=== PATIENT | male | born 1935 | race Caucasian/White ===

== ENCOUNTER 2018-03-11 08:09 | Day surgery (SDC) | payer MEDICARE, OTHER ==
[~2018-03-11] VITALS: Ht 170.3 cm; Wt 99.0 kg
[~2018-03-11 08:09] MED LIST: APIDRAVL SC; CEPHALEXIN500 M1 PO; CIPRO 500MG TA500 MG PO; COUMADIN 1010 MG/TAB PO; DECONAMINE SR 81 CER PO; DITROPAN 5MG TAB5 MG PO; ETODOLAC400 MG PO; FERRO-TIME325 MG PO; FERROUS SU325 MG/TAB PO; FLONASE NASAL S16 GM NS; FOLIC ACID PO; GEMCOR600 MG PO; HUMULIN R100 U/ML SQ; KLOR-CON 1010 MEQ PO; LASIX 40MG TABL40 MG PO; LEVEMIR100 U/ML SC; MACROBID 1100 MG/CAP PO; MIRAPEX0.75 MG PO; MULTI VITAMINS1 TAB PO; MVI PO; NORCO 325 MG-7.1 TAB PO; NOVOLIN N100 U/ML SC; NOVOLOGMIX70/30 SC; NOVOLOGMIX70/30 SQ; NYSTATIN POWDER30 GM TOP; PHENERGAN 25 TA25 MG PO; PLENDIL 5MG TAB5 MG PO; PROAIR HFA0.09 MG/AC IH; PROSCAR 5MG5 MG PO; PROSCAR PO; PYRIDIUM 100MG100 MG PO; ROBAXIN 75750 MG/TAB PO; TESSALON P100 MG/CAP PO; THERAGRAN1 TA1 PO; TRAMADOL50 MG PO; ULTRAM 50MG TAB50 MG PO; VITAMIN C BUFF500 MG PO; VITAMIN C500 MG PO; VTAMINC250TA PO; VYTORIN 10 MG-41 TAB PO; ZETIA10 MG PO
[2018-03-11 08:59] LABS: INR 3.5 (0.8-3.0); PROTHROMBIN TIME 39.6 SECONDS (9.7-12.8)
[2018-03-11 09:02] LABS: POTASSIUM 4.1 mmol/L (3.4-5.0)
[2018-03-11] MEDS ORDERED: MYRBETR25MG PO (09:04)
[2018-03-11] MEDS ORDERED: SYMMETREL100 M1 (09:06)
[2018-03-11 09:18] VITALS: BP 149/69; PULSE 72; TEMP 97.6
[2018-03-11 09:37] LABS: THYROID STIMULATING HORMONE 3.92 uIU/mL (0.465-4.680)
== END 2018-03-11 14:00 | disposition home or self-care (01) ==
LOC: COL.CAR 08:09
PROVIDERS: Internal Medicine Cardiovascular Disease
DX: I48.0 Paroxysmal atrial fibrillation (principal); I49.5 Sick sinus syndrome; I45.9 Conduction disorder, unspecified; I35.0 Nonrheumatic aortic (valve) stenosis; I10 Essential (primary) hypertension; G47.33 Obstructive sleep apnea (adult) (pediatric); K21.9 Gastro-esophageal reflux disease without esophagitis; M19.90 Unspecified osteoarthritis, unspecified site; E11.9 Type 2 diabetes mellitus without complications; C14.0 Malignant neoplasm of pharynx, unspecified; Z79.01 Long term (current) use of anticoagulants; Z88.5 Allergy status to narcotic agent; Z87.891 Personal history of nicotine dependence; Z96.653 Presence of artificial knee joint, bilateral; Z86.711 Personal history of pulmonary embolism
CPT/HCPCS: J2704; J7030

== ENCOUNTER 2019-02-03 09:22 | Day surgery (SDC) | payer MEDICARE, OTHER ==
[~2019-02-03] VITALS: Ht 172.7 cm; Wt 102.7 kg
[~2019-02-03 09:22] MED LIST changes: +MYRBETR25MG PO; +SYMMETREL100 M1 PO
[2019-02-03 09:41] VITALS: BP 133/60; PULSE 75; TEMP 97.2
[2019-02-03] MEDS ORDERED: VITAMIN C500 MG PO (09:51)
[2019-02-03 13:06] VITALS: BP 117/57; PULSE 62; TEMP 97.3
--- NOTE | 2019-02-03 13:06 | NUR ---
The patient arrived back to [facility] from the operating room at this time. The patient appears drowsy but arouses easily to his name. The patient has an incision to his left presybeterian that is covered with stout set and ointment and appears without redness or edema. Post operative vital signs were started at this time. Call light is within reach. Will continue to monitor the patient.
[2019-02-03 13:21] VITALS: BP 137/53; PULSE 64
--- NOTE | 2019-02-03 13:21 | NUR ---
The patient appears more arousable and requests some water at this time. The patient had a couple drinks of water and appeared to tolerate it well. The patient's vital signs appear stable. The patient's family was brought back to be at his bedside. Call light remains within reach. Will continue to monitor the patient.
[2019-02-03] MEDS ORDERED: NORCO 325 MG-51 TAB PO (13:30)
[2019-02-03 13:36] VITALS: BP 132/53; PULSE 60
--- NOTE | 2019-02-03 13:36 | NUR ---
The patient appears to be resting quietly with his eyes closed at this time. Respirations even and unlabored. The patient's family remains at his bedside at this time. Will continue to monitor the patient.
[2019-02-03 13:55] VITALS: BP 126/62; PULSE 72
--- NOTE | 2019-02-03 13:55 | NUR ---
The patient appears to be resting comfortably on the cart at this time. The patient instructed the patient and his family that when he is a little more awake he can be discharged home. They verbalized understanding and are going to "work on the patient". Will continue to monitor the patient.
[2019-02-03 14:25] VITALS: BP 130/63; PULSE 69
--- NOTE | 2019-02-03 14:25 | NUR ---
Discharge instructions were reviewed with the patient and his family at this time. They all verbalized understanding and questions were answered at this time. The patient' IV to his right forearm was removed and a pressure dressing was applied to the site. The nurse instructed the patient to get dressed and notify the staff when he is ready to be escorted out.
--- NOTE | 2019-02-03 14:44 | NUR ---
The patient was escorted out via wheelchair to a private vehicle by KYLIE Mckeon. The patient's belongings and discharge paperwork were sent with him. The patient's family is present to drive him home.
== END 2019-02-03 14:44 | disposition home or self-care (01) ==
LOC: SDCO 09:22
DX: R51 Headache (principal); I10 Essential (primary) hypertension; E78.00 Pure hypercholesterolemia, unspecified; E11.9 Type 2 diabetes mellitus without complications; G47.33 Obstructive sleep apnea (adult) (pediatric); G20 Parkinson's disease; R70.0 Elevated erythrocyte sedimentation rate; M19.90 Unspecified osteoarthritis, unspecified site; G25.0 Essential tremor; Z79.51 Long term (current) use of inhaled steroids; Z79.4 Long term (current) use of insulin; Z79.01 Long term (current) use of anticoagulants; Z96.653 Presence of artificial knee joint, bilateral; Z95.0 Presence of cardiac pacemaker; Z88.5 Allergy status to narcotic agent; Z85.818 Personal history of malignant neoplasm of other sites of lip, oral cavity, and pharynx; Z86.711 Personal history of pulmonary embolism; Z92.21 Personal history of antineoplastic chemotherapy
CPT/HCPCS: J0690; J2704; J7030

== ENCOUNTER 2019-08-19 12:16 | Inpatient (IN) | payer MEDICARE, OTHER ==
[~2019-08-19] VITALS: Ht 172.7 cm; Wt 101.7 kg
[~2019-08-19 12:16] MED LIST changes: +NORCO 325 MG-51 TAB PO
[2019-08-19 15:50] VITALS: BP 126/52; PULSE 78; TEMP 97.6
--- NOTE | 2019-08-19 15:54 | NUR ---
Report from [facility] RN. Pt arrived via wheelchair accompanied by staff and significant other. Sig O states she had tried to trim pt's eyebrows with scissors and she accidentally snipped his upper right eyelid twice. Pt was blotting small corner tear with tissue, applied two short pieces of steri strips. Pt was assisted to bed by GIN FEEDER with walker, yellow gown and grippers and pull up in place. INT to L hand. Glasses in place. Pt [place], pleasant, denies pain. Reports his last BM was a week ago (Wednesday) and 5-6 days is normal for him, no pain.
[2019-08-19] MEDS ORDERED: NORMAL SALINE FL5 ML IV (16:33)
[2019-08-19] MEDS ORDERED: PREDNISONE20 MG PO (17:06)
[2019-08-19] MEDS ORDERED: BUMEX 1MG TA1 MG/TA1 PO (17:10)
[2019-08-19] MEDS ORDERED: NITROSTAT0.4 MG/TAB SL (17:10)
[2019-08-19] MEDS ORDERED: IPRATROPIUM BROM3 M1 IH ×2 (17:12→17:13)
[2019-08-19] MEDS ORDERED: ASPIRIN 81M81 MG/TA2 PO (17:13)
--- NOTE | 2019-08-19 18:14 | NUR ---
Stage II to left inner buttock, red, raw, slightly draining/transfers sanguinous fluid, surrounding tissue deep purple, pt states he does not feel it.
--- NOTE | 2019-08-19 19:22 | NUR ---
Report to KYLIE Shaffer
--- NOTE | 2019-08-19 21:10 | NUR ---
NOTIFIED LIDYA MONREAL RE HYPOGLYCEMIA. OK TO HOLD LEVEMIER INSULIN TONIGHT.
[2019-08-20 05:45] VITALS: BP 159/54; PULSE 75; TEMP 97.8
--- NOTE | 2019-08-20 05:59 | NUR ---
ASSITED TO BR. VOIDED WITHOUT DIFFICULTY. DSYPNEIC WITH ACTIVITY. SEEMS TO COMPENSATE WELL. BACK TO BED. O2 3L NC.
[2019-08-20 15:07] VITALS: BP 119/46; PULSE 83; TEMP 98.1
--- NOTE | 2019-08-20 16:40 | NUR ---
Emily RN states pt requested his BG get checked = 38, pt took 120 ml OJ, PB and ras crackers. Cont to be alert. Rechecked per protocol 15 minutes later = 68, given prune juice
--- NOTE | 2019-08-20 21:00 | NUR ---
PT RESTING IN BED. A&O. [place]. FAMILY HERE VISITING. VERY SUPPORTIVE. O2 2L NC. NO RESP DISTRESS. CONTINUES FLUID RESTRICTION. ACCUCHECK 123. TOOK SANDWICH FOR A SNACK. PT REFUSES LEVEMIER. PT STILL HAS EDEMA IN EXTREMITIES.
[2019-08-21 05:05] VITALS: BP 157/73; PULSE 74; TEMP 98
[2019-08-21 06:58] LABS: INR 1.3 (0.8-3.0); PROTHROMBIN TIME 14.7 SECONDS (9.7-12.8)
--- NOTE | 2019-08-21 10:09 | NUR ---
SW met with the patient to complete initial intake, as the patient is new to [facility]. The patient lives in [place] with his daughter (Nga, ph#[phone]) and son (Zhang, ph#[phone]). He reports independence with ADLs prior to hospitalization and has two canes, a FWW, 4WW, and continuous home oxygen. The patient's PCP is Dr. Gopi Lainez and he receives his medications from [facility] in [place]. He reports no difficulties obtaining his meds. The patient's DPOA-HC is in EMR. His DPOA-HC is his daughter (Nga) or friend (Светлана Titus). HARSH to continue to follow to ensure a safe discharge.
--- NOTE | 2019-08-21 11:45 | NUR ---
Patient resting in recliner following his morning therapies. Denies any questions at this time. Currently on 1500 fluid restriction.
--- NOTE | 2019-08-21 13:15 | NUR ---
Patient ate all his lunch and was independent with eating. He was a one person CGA with transferring from chair to walker, walker to toilet and from sitting to standing. He is unsteady at times. Patient continues on oxygen 2 L this morning.
--- NOTE | 2019-08-21 13:51 | NUR ---
Warfarin Follow-up Pharmacy Note Current regimen: Warfarin 3 mg po qHS LABS: INR 1.3 Changes in therapy: Will increase Warfarin to 4 mg po qHS
--- NOTE | 2019-08-21 13:57 | NUR ---
Patient has been having some low blood sugars. Dr. Holley saw patient this morning. See new orders to hold scheduled Novolog TIDF; decreasing Levimir from 30 U BID to 27 U BID and he will continue on HSSI. Will continue to monitor.
--- NOTE | 2019-08-21 15:32 | NUR ---
HARSH met with the patient to discuss setting up a patient/family conference. The patient states that both his children work and that he is unsure of their schedules. He states that he will talk to them both tonight. HARSH to follow up with the patient tomorrow.
[2019-08-21 16:50] VITALS: BP 119/50; PULSE 76; TEMP 97.7
--- NOTE | 2019-08-21 20:00 | NUR ---
PATIENT UP IN CHAIR, FAMILY PRESENT IN ROOM, DURING SHIFT CHANGE REPORT FROM DAY SHIFT NURSE. CHAIR ALARM ON.
--- NOTE | 2019-08-22 01:31 | NUR ---
RESTING IN BED WITH EYES CLOSED, CPAP ON, BED ALARM ON. DOES NOT AWAKEN WHEN ROOM ENTERED.
--- NOTE | 2019-08-22 03:38 | NUR ---
PATIENT RESTING IN BED WITH EYES CLOSED, CPAP OFF, BREATHING NONLABORED AND EVEN. BED ALARM ON.
[2019-08-22 05:06] VITALS: BP 144/53; PULSE 61; TEMP 97.7
--- NOTE | 2019-08-22 05:17 | NUR ---
REPORT DIZZINESS INITIALLY WITH POSITION CHANGES FROM LAYING TO SITTING AND SITTING TO STANDING THAT RESOLVES SHORTLY AFTER ONSET. PATIENT REPORTS HAS HAD DIZZINESS IN THE PAST "SOMETIMES". DENIES ANY CHEST PAIN, SHORTNESS OF BREATH OR PAIN ELSEWHERE OR HYPOGLYCEMIA AT THIS TIME. BED ALARM ON.
[2019-08-22 05:23] VITALS: BP 132/72; PULSE 95; TEMP 97.8
--- NOTE | 2019-08-22 06:13 | NUR ---
FSBS INITIALLY 50, GIVEN 200ML REGULAR SPRITE, RECHECKED FSBS 15MIN AFTER TAKING SODA, 76, GAVE 120 OJ AND 1 PACKAGE PEANUT BUTTER AND 2 PACKAGES CRACKERS.
--- NOTE | 2019-08-22 07:23 | NUR ---
SITTING UP AT SIDE OF BED EATING BREAKFAST DURING SHIFT CHANGE REPORT GIVEN TO DAY SHIFT NURSE. BED ALARM ON.
[2019-08-22 07:42] LABS: INR 1.4 (0.8-3.0); PROTHROMBIN TIME 16.1 SECONDS (9.7-12.8)
--- NOTE | 2019-08-22 11:41 | NUR ---
SW met with the patient to follow up about the family meeting. The patient reports that his daughter has to work the rest of the week, but that SW could contact his daughter to try and arrange a time. SW contacted the patient's daughter, Nga. A family meeting with her on speaker phone was arranged for this , 08/24, at 1200. SW notified the patient.
--- NOTE | 2019-08-22 15:49 | NUR ---
Received new orders from Nurse Practioner at wound care to apply Aquathor to patient's bottom with each toileting. Leave open to air. This will provide moisture protection to the area.
[2019-08-22 15:58] VITALS: BP 122/58; PULSE 88; TEMP 98.2
--- NOTE | 2019-08-22 19:00 | NUR ---
Patient attended all therapies today. He is currently resting in recliner with family by his side, call light in reach and alarm set. Patient was a set up for grooming this shift. He was independent with eating his meals. He had one episode of incontinence on the floor and on clothes this evening when using the toilet. Patient was cleaned up and was able to pull pants up and down and wipe this evening.
--- NOTE | 2019-08-22 19:30 | NUR ---
PATIENT UP IN CHAIR DURING SHIFT CHANGE REPORT FROM DAY SHIFT NURSE. UP TO BATHROOM WITH ASSIST, PASSED BM/URINE. CHAIR ALARM ON.
--- NOTE | 2019-08-22 20:00 | NUR ---
OBSERVED SWELLING TO BLE WITH RIGHT MORE THAN LEFT
--- NOTE | 2019-08-22 20:23 | NUR ---
PATIENT TRANSFERED FROM RECLINER CHAIR TO BED WITH ASSIST PER PATIENT REQUEST. BED ALARM ON.
--- NOTE | 2019-08-23 02:00 | NUR ---
RESTING IN BED WITH EYES CLOSED, DOES NOT AWAKEN WHEN ROOM ENTERED. BREATHING NONLABORED AND EVEN. BED ALARM ON.
[2019-08-23 05:30] VITALS: BP 173/82; PULSE 69; TEMP 97.5
--- NOTE | 2019-08-23 05:55 | NUR ---
GIVEN 240 OJ WITH 4 PACKETS OF SUGAR. BED ALARM ON.
--- NOTE | 2019-08-23 06:15 | NUR ---
GIVEN 1 SNACK CUP OF CHOCOLATE PUDDING AFTER FSBS RECHECKED AT 68.
--- NOTE | 2019-08-23 06:35 | NUR ---
FSBS RECHECKED AT 80, GAVE PATIENT 1 SERVING CUP OF BLUEBERRY YOGURT. CHAIR ALARM ON.
[2019-08-23 07:09] LABS: INR 1.6 (0.8-3.0); PROTHROMBIN TIME 18.9 SECONDS (9.7-12.8)
--- NOTE | 2019-08-23 07:30 | NUR ---
UP IN CHAIR DURING SHIFT CHANGE REPORT GIVEN TO DAY SHIFT NURSE. CHAIR ALARM ON.
--- NOTE | 2019-08-23 12:43 | NUR ---
Bedside report from KYLIE Ott. Pt in chair with O2 at 2L/NC as at home. Had low BG this morning, INR per SSI. Alert, pleasant, good appetite. Aquaphor oint to left inner buttock to healing skin- irritated. Has adventitious heart sound, squeaks. Amb with walker, min assist.
--- NOTE | 2019-08-23 16:04 | NUR ---
HARSH met with the patient and his son, Zhang, to present and review the IPR Team Conference Note. HARSH discussed the patient's progress with therapy and the team's recommendation of outpatient PT with a tentative discharge date set for 08/30. The patient and his son were in agreeance to this plan. The patient and his son chose [facility] in [place] for the outpatient PT. HARSH contacted Ayla at [facility] in [place] and secured the patient an outpatient PT appointment on 09/05, at 1000. HARSH to inform the patient's RN of appointment. HARSH to continue to follow.
[2019-08-23 16:41] VITALS: BP 101/31; PULSE 94; TEMP 97.3
--- NOTE | 2019-08-23 19:27 | NUR ---
Bedside report to KYLIE Shaffer. Pt in chair, sig O visiting, O2@1L/NC, grippers in place, glasses on
[2019-08-23 19:30] VITALS: BP 118/70
--- NOTE | 2019-08-23 21:00 | NUR ---
PT SITTING UP IN RECLINER. HERE. VERY SUPPORTIVE. O2 1L NC. NO RESP DISTRESS AT THIS TIME. SEE MAR FOR TYLENOL GIVEN FOR GENERALIZED DISCOMFORT. ACCUCHECK 252. PT ATE HS SNACK AND APPLESAUCE WITH PILLS. SEE MAR FOR SSI GIVEN. CALL LIGHT IN REACH. CHAIR SET.
--- NOTE | 2019-08-24 00:28 | NUR ---
SPOT CHECKED ACCUCHECK- 77. PT HAD HS SNACK EARLIER- APPLESAUCE. CHEESE AND CRACKERS. ASSISTED PT UP TO RECLINER D/T RESTLESSNESS. O2 PLACED 1L NC. LT THIGH HAS CHRONIC MUCLES SPASMS "JOLTS" WHEN LAYING DOWN. TYLENOL NOT EFFECTIVE. ICE PACK TO AREA, CALL LIGHT IN REACH. CHAIR ALARM SET.
--- NOTE | 2019-08-24 00:41 | NUR ---
pt is having a hard time sleeping and is in chair off the bipap
--- NOTE | 2019-08-24 01:00 | NUR ---
ASSISTED BACK TO BED. NOTIFIED PT AGREEABLE TO BIPAP. CALL [facility] IN [facility]. BED ALARM SET.
--- NOTE | 2019-08-24 01:42 | NUR ---
RT REPORTED PT REFUSED BIPAP. O2 1 LNC STARTED.
[2019-08-24 05:25] VITALS: BP 153/55; PULSE 66; TEMP 97.9
--- NOTE | 2019-08-24 05:33 | NUR ---
ACCUCHECK 62. SANDWICH AND MILK GIVEN.
[2019-08-24 07:25] LABS: PROTHROMBIN TIME 23.7 SECONDS (9.7-12.8)
--- NOTE | 2019-08-24 13:29 | NUR ---
SW attended a family meeting with the patient and his girlfriend, Светлана. SW attempted to contact his daughter, Nga, for the family meeting. The patient's daughter did not answer. IPR Director then began be explaining the purpose of the meeting. PT/OT/ST then discussed the patient's progress with the plan for a discharge next Wednesday, 08/30, with outpatient PT. The patient was in agreeance to this plan. The patient's girlfriend reports that they have been thinking about having the patient come and stay at her home in [place] upon discharge, due to the patient's children working during the day. She states that the patient would have steps to go up to get into her home. The team plans to continue to work with the patient on steps. The team answered answered all questions. SW to continue to follow.
[2019-08-24 18:26] VITALS: BP 130/35; PULSE 72; TEMP 98
--- NOTE | 2019-08-24 20:00 | NUR ---
SHIFT REPORT RECIEVED FROM Kimberly MOON RN. PT SITTING UP IN RECLINER. FAMILY AT BEDSIDE. VERY SUPPORTIVE. O2 1/2L NC. WANTS TYLENOL AT BEDTIME FOR LT THIGH PAIN.
--- NOTE | 2019-08-24 20:01 | NUR ---
Shift summary: Bedside report from KYLIE Shaffer. Pt on O2/NC, c/o pain to left thigh, tylenol given this morning, enc again this evening to prevent pain from setting in, had a rough night according to report. Pt ate well, had visitors. Steris to right upper eyelid intact, dried scab. Pt amb with walker, CGA, in yellow gown, grippers, SCDs to BLE with feet up in recliner, alarm on, call lt in reach. Bedside report to KYLIE Shaffer
--- NOTE | 2019-08-24 21:00 | NUR ---
ACCUCHECK 262. PT AGREED TO LEVEMIER INSULIN. DECLINED NOVOLOG SSI. PT ABLE TO TAKE IN HS SNACK. READY FOR SLEEP. BIPAP ON PER RT. NONEEDS. CALL LIGHT IN REACH. BED ALARM SET.
--- NOTE | 2019-08-25 01:30 | NUR ---
SPOT CHECK ACCUCHECK 199.
--- NOTE | 2019-08-25 03:57 | NUR ---
ASSISTED PT TO BR W/WALKER. VOIDED. BACK TO BED. O2 BACK ON AT 1/2LNC. VSS.
[2019-08-25 04:03] VITALS: BP 166/60; PULSE 81; TEMP 98.2
--- NOTE | 2019-08-25 07:26 | NUR ---
Lying in bed with eyes closed. Opens eyes when name called out. Alert and oriented x4. Denies pain. Oxygen at 0.5L/NC. Lung sounds with faint inspiratory and expiratory wheezes in all lung barba. Right upper eyelid with steri strips in place. Significant amount of dark purple bruising noted to right upper arm. Patient denies needs at this time. Eating breakfast.
[2019-08-25 07:55] LABS: HEMOGLOBIN 10.6 g/dl (13.5-18.0); MEAN CELL VOLUME 89 fl (80.0-100.0); MEAN CORPUSCULAR HEMOGLOBIN 26 pg (27.0-31.0); MEAN CORPUSCULAR HGB CONC 29 g/dl (33.0-37.0); MEAN PLATELET VOLUME 9.9 fl (7.4-10.4); PLATELET COUNT 354 K/mm3 (130-400); RED BLOOD COUNT 4.13 M/mm3 (4.20-5.60); REDCELL DISTRIBUTION WIDTH-CV 17.2 % (11.5-14.5)
[2019-08-25 07:58] LABS: HEMATOCRIT 36.7 % (42.0-52.0)
[2019-08-25 08:06] LABS: CALCIUM 8.8 mg/dL (8.4-10.2); CREATININE, serum 1.17 (0.66-1.25); MAGNESIUM 2.3 mg/dL (1.6-2.3); POTASSIUM 3.6 mmol/L (3.4-5.0)
[2019-08-25 08:13] LABS: INR 2.3 (0.8-3.0); PROTHROMBIN TIME 27.2 SECONDS (9.7-12.8)
[2019-08-25 08:31] LABS: BAND 4 % (0-10); EOSINOPHIL 3 % (0-4); LYMPHOCYTE 17 % (20.0-51.0); METAMYELOCYTE 1 % (0-0); NEUTROPHILS 64 % (42.0-75.2); PLATELET ESTIMATE NORMAL (NORMAL)
--- NOTE | 2019-08-25 13:55 | NUR ---
Admission QIM scores were reviewed by the team. Code of 5 chosen for eating was determined by team discussion to be the most usual performance before interventions for this patient during the assessment period.--Monet Kelly, PD
--- NOTE | 2019-08-25 14:35 | NUR ---
HARSH met with the patient to follow up before the weekend. The patient states that he is doing well. Just watching TV. The patient reports that they are still leaning towards him staying at his girlfriend, Maryams, home in [place] upon discharge. [facility] discussed switching his PT appointment to the [facility] in [place]. The patient reports that is okay to keep his appointment at the [facility] in [place] for now. He states that this could change by the time of his discharge though. SW to continue to follow.
[2019-08-25 15:37] VITALS: BP 133/56; PULSE 78; TEMP 97.6
--- NOTE | 2019-08-25 21:00 | NUR ---
Patients left for the night. Patient up to the bathroom CGA with walker. Gait steady. Voids and sits back up in chair. Takes grahams and cheese for snack and a few nuts. HS meds all reviewed and given.
--- NOTE | 2019-08-25 22:00 | NUR ---
Patient assisted to bed with walker. Rests self back in bed. Denies pain.
--- NOTE | 2019-08-26 02:00 | NUR ---
Patient has been resting quietly in bed. Awake and calls for assist to remove bipap/done. Returns to resting with eyes closed.
[2019-08-26 04:48] VITALS: BP 132/50; PULSE 68; TEMP 98.5
--- NOTE | 2019-08-26 09:02 | NUR ---
PT IS LAYING IN BED. ATE 100% MEAL. NSG ASSESSMENT COMPLETED. PT HAS NO PAIN.
[2019-08-26 16:30] VITALS: BP 114/62; PULSE 73; TEMP 98.6
--- NOTE | 2019-08-26 18:22 | NUR ---
PT HAS BEEN SITTING UP IN HIS RECLINER FOR MOST OF THE DAY. HE EATS WELL AND HAS HAD SEVERAL SNACKS. PT HAS SLEPT OFF AND ON TODAY. HE HAS NOT HAD ANY PAIN MEDS, HAS HAD NO PAIN. CALL LIGHT AND ALARMS ON TODAY
--- NOTE | 2019-08-26 19:00 | NUR ---
Report received from Odalis ESPINAL. Patient sitting up in chair visiting with significant other. Denies pain.
--- NOTE | 2019-08-26 22:00 | NUR ---
Patient up to the bathroom with walker and changes into gown for HS. Rests back in bed. HS meds all reviewed and given. Took snack of piece of pie brought in by significant other.
--- NOTE | 2019-08-27 03:02 | NUR ---
Rests with eyes closed. Respirations with ease. Bipap off.
[2019-08-27 05:01] VITALS: BP 123/50; PULSE 73; TEMP 97.9
[2019-08-27 08:25] LABS: PROTHROMBIN TIME 23.8 SECONDS (9.7-12.8)
--- NOTE | 2019-08-27 08:33 | NUR ---
Sitting up in chair. Denies pain. Steri strips intact to right upper eyelid. Large bruise noted to right upper arm. Bilat lower ext edema 1+. Patient denies needs or concerns at this time.
--- NOTE | 2019-08-27 08:40 | NUR ---
Patient did not want bed bath today. Patient assisted into changing into personal clothes. Patient performed oral hygiene earlier in the morning. Remains sitting up in the chair. Denies further needs at this time.
--- NOTE | 2019-08-27 13:00 | NUR ---
Sitting up in chair. Denies any needs or concerns at this time.
[2019-08-27 15:54] VITALS: BP 115/49; PULSE 70; TEMP 97.8
--- NOTE | 2019-08-27 15:55 | NUR ---
Sitting up in chair with eyes open. Visitors in room with the patient. Patient voices no needs or concerns at this time.
--- NOTE | 2019-08-27 17:21 | NUR ---
Sitting up in chair watching TV and visiting with company in room. Denies pain or any further needs at this time.
--- NOTE | 2019-08-27 19:30 | NUR ---
PATIENT SITTING UP IN CHAIR, FAMILY& VISITORS IN ROOM, DURING SHIFT CHANGE REPORT FROM DAY SHIFT NURSE. CHAIR ALARM ON. NO NEEDS REPORTED AT TIME OF REPORT.
--- NOTE | 2019-08-28 01:26 | NUR ---
PATIENT REPORTS DIZZINESS WHEN TAKEN TO BATHROOM, 120 ML ORANGE JUICE GIVEN PRIOR TO BATHROOM. FSBS CHECKED AFTER BATHROOM, RESULTED 44, ANOTHER 120 ML ORANGE JUICE WITH 2 PACKETS OF SUGAR MIXED IN JUICE GIVEN TO PATIENT.
--- NOTE | 2019-08-28 04:34 | NUR ---
RESTING IN BED, EYES CLOSED, DOES NOT AWAKEN WHEN ROOM ENTERED, BREATHING EVEN/NONLABORED, BED ALARM ON.
[2019-08-28 05:46] VITALS: BP 126/65; PULSE 65; TEMP 97.8
[2019-08-28 06:48] LABS: CALCIUM 8.6 mg/dL (8.4-10.2); CREATININE, serum 1.12 (0.66-1.25); MAGNESIUM 2.1 mg/dL (1.6-2.3); POTASSIUM 3.7 mmol/L (3.4-5.0)
--- NOTE | 2019-08-28 07:25 | NUR ---
PATIENT IN BED DURING SHIFT CHANGE REPORT GIVEN TO DAY SHIFT NURSE. BED ALARM ON.
--- NOTE | 2019-08-28 09:43 | NUR ---
Patient attending therapies this morning. Reported 1/10 pain to right upper extremity, but refused any pain meds this AM. He is independent with eating and grooming, but does take moretime. Denies questions at this time.
--- NOTE | 2019-08-28 11:40 | NUR ---
Discussed low blood sugars from this morning with patient. Will update Dr. Pratt this evening.
--- NOTE | 2019-08-28 14:43 | NUR ---
Furniture Crater met with patient to follow up from the weekend. Patient states he had a good weekend and still does not know if his outpatient PT needs to be set up in [place] or [facility] office. SW to continue to follow. Patient reports he has an appointment also set up at for the . Patient does not have any questions or concerns at this time.
[2019-08-28 18:15] VITALS: BP 117/52; PULSE 78; TEMP 98.6
--- NOTE | 2019-08-28 19:40 | NUR ---
PATIENT UP IN CHAIR DURING SHIFT CHANGE REPORT FROM DAY SHIFT NURSE. PATIENT MOD I IN ROOM. NO NEEDS REPORTED. GIVEN ENSURE 240 ML FOR SNACK.
--- NOTE | 2019-08-28 20:00 | NUR ---
NOE LOWER EXTREMITIES SWELLING RIGHT MORE THAN LEFT.
--- NOTE | 2019-08-28 20:44 | NUR ---
Patient had a low blood sugar this afternoon again.
--- NOTE | 2019-08-28 20:54 | NUR ---
Received new orders from Dr. Pratt to change Levimier form 20 units to 15 units BID. Patient had a decrease in his dosage of prednisone which may a factor in his current lower blood sugars. Will continue to monitor.
--- NOTE | 2019-08-28 21:50 | NUR ---
PATIENT GIVEN PEANUT BUTTER WITH 2 PACKETS OF CRACKERS ADDITIONAL FOR HS SNACK. PATIENT AGREEABLE TO HAVE BED ALARM ON FOR SAFETY AT NIGHT DUE TO LAST NIGHT LOW FSBS READINGS.
--- NOTE | 2019-08-29 02:30 | NUR ---
PATIENT RESTING IN BED, BED ALARM ON AT THIS TIME. OXYGEN CONTINUES PER NC AT 1-2 LPM. PATIENT DOES NOT AWAKEN WHEN ROOM ENTERED.
--- NOTE | 2019-08-29 03:26 | NUR ---
TREATMENT NOT GIVEN - PATIENT SLEEPING
[2019-08-29 05:09] VITALS: BP 126/67; PULSE 97; TEMP 97.4
--- NOTE | 2019-08-29 05:24 | NUR ---
FSBS 66, GIVEN 1 SNACK CUP SHREYA PUDDING.
[2019-08-29 06:01] VITALS: BP 137/52; PULSE 63; TEMP 97.5
--- NOTE | 2019-08-29 06:52 | NUR ---
PATIENET REFUSING BIPAP, REMOVING BIPAP FROM ROOM.
[2019-08-29 09:28] LABS: INR 1.9 (0.8-3.0); PROTHROMBIN TIME 22.5 SECONDS (9.7-12.8)
--- NOTE | 2019-08-29 12:09 | NUR ---
Patient resting in recliner, call light in reach and is independent in his room. Patient is not on oxygen during the day now, but does use it at night sometimes. He attended all therapies this morning. Patient ate some snacks prior to lunch due to feeling light headed from lower blood sugar. Will continue to monitor.
[2019-08-29 13:35] VITALS: BP 116/43; PULSE 73; TEMP 98.1
--- NOTE | 2019-08-29 14:01 | NUR ---
At approximately 1:35 pm patient reported to staff that he felt like somebody stepped on his chest. Then bilateral elbows down to hands started to go to sleep and were numb and tingling. This nurse arrived and took vitals and they were stable. Charge nurse, Kisha was called and she and KYLIE Vitale ordered EKG and called Dr. Holley to evaluate patient. Dr. Holley reviewed EKG results and did his assessment and no changes to patients care were made at this time. Patient reported that he know longer felt the heaviness to his chest, he never had any nausea, but did feel weak and unsteady when transferring from his recliner to bed during this episode. Patient is now resting in bed still has numbness to bilateral hands, call light in reach and bed alarm set. Patient is currently on oxygen 1 L at this time. Will continue to monitor.
--- NOTE | 2019-08-29 15:21 | NUR ---
Artist Woodblock met with patient who is scheduled for discharge tomorrow 08/30/2019. SW presented and explained IM form to patient who verbalized understanding and provided signature. Original was placed on chart and copy was provided to patient. HARSH followed up on location for patient's outpatient PT. Patient states he would like the appointment changed from the [facility] location to [place] for the time being. [facility] contacted [facility] in [place] and rescheduled his appointment for 09/01/2019 @1045 at the [place] office. Appointment was provided to [facility]. HARSH will fax orders to [phone] tomorrow upon discharge.
[2019-08-29 16:13] VITALS: BP 136/41; PULSE 74; TEMP 97.8
--- NOTE | 2019-08-29 18:12 | NUR ---
Patient has reported that the numbness to his bilateral hands has gone away now. Patient regained his strength and this nurse observed patient independently walk from recliner to bathroom and back with no difficulties. He ate all his dinner this evening. Will continue to monitor.
--- NOTE | 2019-08-29 20:00 | NUR ---
Patient sitting up in recliner and significant other in visiting. HS meds along with insulin and HS snack reviewed and given. Patient is mod I in room with walker. Denies pain.
[2019-08-29 22:31] VITALS: BP 124/48; PULSE 71; TEMP 98
[2019-08-30 03:26] VITALS: BP 135/51; PULSE 71; TEMP 97.6
--- NOTE | 2019-08-30 05:52 | NUR ---
Patient accu check 71 and 4oz orange juice given.
[2019-08-30 07:41] LABS: INR 1.8 (0.8-3.0); PROTHROMBIN TIME 20.9 SECONDS (9.7-12.8)
[2019-08-30 07:42] VITALS: BP 120/49; PULSE 89; TEMP 97.6
[2019-08-30] MEDS ORDERED: PREDNISONE20 MG PO (08:45)
[2019-08-30] MEDS ORDERED: PROAIR HFA0.09 MG/AC IH (08:47)
[2019-08-30] MEDS ORDERED: K-TAB20 PO (08:47)
--- NOTE | 2019-08-30 10:57 | NUR ---
[employer] Sales Consultant faxed order for outpatient PT to [facility]. Patient to discharge today. No additional needs at this time.
[2019-08-30 12:11] VITALS: BP 123/50; PULSE 87; TEMP 97.8
--- NOTE | 2019-08-30 20:10 | NUR ---
Report from KYLIE Oliveros. Pt lili mod I in rm with walker. On room air. Removed INT and tele prior to discharge. Printed pt health summary, discharge summary, and discharge home med list and reviewed with pt (and sig O Ruby). Called in other new meds to pharm of choice, pharm confirms receipt of e-scripts. Belongings gathered by pt, Sig O, and staff including upper and lower dentures, bilateral hearing aides, glasses, wallet, clothes, portable oxygen unit. Pt and Sig O denied any questions. Stressed importance of diet, fluid restriction, daily weights, and pressure ulcer cares. Pt verbalized understanding. Pt transported via wheelchair by JORGITO Martinez for ride home. Faxed DC Summary to PCP and recieved "OK" fax receipt.
== END 2019-08-30 16:35 | disposition home or self-care (01) | DRG 947 ==
PROVIDERS: ADMIT Internal Medicine
DX: R53.81 Other malaise (principal); J96.22 Acute and chronic respiratory failure with hypercapnia; J96.21 Acute and chronic respiratory failure with hypoxia; I50.32 Chronic diastolic (congestive) heart failure; N17.9 Acute kidney failure, unspecified; G72.9 Myopathy, unspecified; I11.0 Hypertensive heart disease with heart failure; E78.5 Hyperlipidemia, unspecified; I48.91 Unspecified atrial fibrillation; I35.0 Nonrheumatic aortic (valve) stenosis; N40.0 Benign prostatic hyperplasia without lower urinary tract symptoms; I27.20 Pulmonary hypertension, unspecified; J44.9 Chronic obstructive pulmonary disease, unspecified; G47.33 Obstructive sleep apnea (adult) (pediatric); G20 Parkinson's disease; E11.9 Type 2 diabetes mellitus without complications; Z79.01 Long term (current) use of anticoagulants; Z79.4 Long term (current) use of insulin; Z86.711 Personal history of pulmonary embolism; Z95.0 Presence of cardiac pacemaker; Z85.818 Personal history of malignant neoplasm of other sites of lip, oral cavity, and pharynx; Z92.21 Personal history of antineoplastic chemotherapy; Z92.3 Personal history of irradiation; Z87.891 Personal history of nicotine dependence; Z88.6 Allergy status to analgesic agent
CPT/HCPCS: 99222-AI; 99232-AI; 99239; J1815; J7512

== ENCOUNTER 2019-09-09 07:35 | Emergency (ER) | payer MEDICARE, OTHER ==
[~2019-09-09] VITALS: Ht 167.6 cm; Wt 104.5 kg
[~2019-09-09 07:35] MED LIST changes: +ASPIRIN 81M81 MG/TA2 PO; +BUMEX 1MG TA1 MG/TA1 PO; +IPRATROPIUM BROM3 M1 IH; +K-TAB20 PO; +NITROSTAT0.4 MG/TAB SL; +NORMAL SALINE FL5 ML IV; +PREDNISONE20 MG PO
[2019-09-09 07:54] VITALS: TEMP 97.4
[2019-09-09 08:10] LABS: BASO % 0.3 % (0.0-2.0); EOS # 0.2 (0.0-0.7); EOS % 2.8 % (0-4.0); GRAN # 6.3 (1.4-6.5); GRAN % 84.3 % (42.2-75.2); LYMPH # 0.4 (1.2-3.4); LYMPH % 4.7 % (20.0-51.0); MEAN CELL VOLUME 89 fl (80.0-100.0); MEAN CORPUSCULAR HGB CONC 28 g/dl (33.0-37.0); MEAN PLATELET VOLUME 9.3 fl (7.4-10.4); MONO # 0.6 (0.1-0.6); MONO % 7.5 % (1.7-9.3); PLATELET COUNT 263 K/mm3 (130-400); RED BLOOD COUNT 3.71 M/mm3 (4.20-5.60)
[2019-09-09 08:13] LABS: HEMATOCRIT 33.1 % (42.0-52.0); HEMOGLOBIN 9.4 g/dl (13.5-18.0); MEAN CORPUSCULAR HEMOGLOBIN 25 pg (27.0-31.0)
[2019-09-09 08:18] LABS: ALBUMIN 3.4 gm/dL (3.5-5.0); BILIRUBIN,TOTAL 0.3 mg/dL (0.0-1.0); CALCIUM 8.6 mg/dL (8.4-10.2); CREATININE, serum 1.24 (0.66-1.25); MAGNESIUM 2.3 mg/dL (1.6-2.3); TOTAL PROTEIN 6.5 gm/dL (6.4-8.2)
[2019-09-09 08:30] LABS: INR 1.8 (0.8-3.0); PROTHROMBIN TIME 21.9 SECONDS (9.7-12.8)
[2019-09-09 08:33] LABS: PARTIAL THROMBOPLASTIN TIME 36.7 SECONDS (26.0-37.0)
[2019-09-09 08:36] LABS: TROPONIN-I 0.046 ng/mL (0.000-0.035)
[2019-09-09 12:04] VITALS: BP 124/61; PULSE 78
== END 2019-09-09 12:10 | disposition short-term general hospital (02) ==
LOC: COL.ER 07:35
PROVIDERS: Emergency Medicine
DX: I50.9 Heart failure, unspecified (principal); R04.2 Hemoptysis; I10 Essential (primary) hypertension; E11.9 Type 2 diabetes mellitus without complications; I25.10 Atherosclerotic heart disease of native coronary artery without angina pectoris; I48.91 Unspecified atrial fibrillation; Z79.01 Long term (current) use of anticoagulants; Z79.4 Long term (current) use of insulin; Z79.82 Long term (current) use of aspirin

== ENCOUNTER → 2019-10-11 | Outpatient (CLI) | payer MEDICARE, OTHER ==
[~2019-10-11] MED LIST changes: +ALDACTONE 25MG25 M1 PO; +APIDRAVL SQ; -COUMADIN 1010 MG/TAB PO; +COUMADIN 2MG2 MG/TAB PO; +COUMADIN 3MG3 MG/TAB PO; +FLOMAX 0.40.4 MG/CAP PO; +LEVEMIR FLEX100 U/ML SQ; +SENOKOT S 50 MG1 TAB PO
== END ==
LOC: COL.RAD 09:09
DX: J90 Pleural effusion, not elsewhere classified (principal); J18.1 Lobar pneumonia, unspecified organism; Z97.8 Presence of other specified devices

== ENCOUNTER 2019-10-12 11:17 | Inpatient (IN) | payer MEDICARE, OTHER ==
[~2019-10-12] VITALS: Ht 167.6 cm; Wt 93.3 kg
[~2019-10-12 11:17] MED LIST changes: -ALDACTONE 25MG25 M1 PO; -APIDRAVL SQ; -COUMADIN 2MG2 MG/TAB PO; -FLOMAX 0.40.4 MG/CAP PO; -LEVEMIR FLEX100 U/ML SQ; -SENOKOT S 50 MG1 TAB PO
[2019-10-12 15:03] VITALS: BP 138/44; PULSE 79; TEMP 98
[2019-10-12] MEDS ORDERED: LEVEMIR FLEX100 U/ML SQ (16:44)
[2019-10-12] MEDS ORDERED: PROSCAR 5MG5 MG PO (16:45)
[2019-10-12] MEDS ORDERED: ALDACTONE 25MG25 M1 PO (16:46)
[2019-10-12] MEDS ORDERED: FLOMAX 0.40.4 MG/CAP PO (16:47)
[2019-10-12] MEDS ORDERED: SENOKOT S 50 MG1 TAB PO (16:48)
[2019-10-12] MEDS ORDERED: APIDRAVL SQ (16:53)
[2019-10-12 17:07] LABS: INR 1.4 (0.8-3.0)
--- NOTE | 2019-10-12 17:38 | NUR ---
Patient arrived to facility via private vehicle at approximately 1500. Patient is alert and oriented, answers questions appropriately. Small pressure ulcers on the left and right of gluteal cleft just below the coccyx; patient states it is from his stay at for his aortic valve replacement. Skin is open, but is clean, pink, and moist. Dressing applied. Up to date medication list requested and recieved from Dr. Cline's office, med rec completed. Patient denies needs at this time, call light within reach.
--- NOTE | 2019-10-12 17:45 | NUR ---
Warfarin Initial Dosing Pharmacy Note Ordering Provider: Sid Pratt MD Indication: Atrial fibrillation LABS: INR = 1.4 Recommendation: Initiate at 5 mg warfarin daily. Monitor INR daily Home Regimen: According to patient medication claim history, thi spatient averages 6 mg of warfain daily.
[2019-10-12 18:01] VITALS: BP 138/74; PULSE 79; TEMP 98
--- NOTE | 2019-10-12 18:50 | NUR ---
PATIENT RESTING IN BED DURING CHANGE OF SHIFT REPORT FROM DAY SHIFT NURSEISA. BED ALARM TURNED ON.
--- NOTE | 2019-10-12 21:10 | NUR ---
CONTACTED AND CONFIRMED WITH HOSPITALIST EDI ANALYST, DR KEARNS, PATIENT'S HOME [facility] SSI REGIMEN FOR BLOOD SUGAR RESULTS. ORDERS GIVEN TO CONTINUE SSI PATIENT TAKES AT HOME, ASPART IS OKAY TO GIVE ACCORDING TO FSBS READINGS. BED ALARM ON.
--- NOTE | 2019-10-12 23:30 | NUR ---
UNABLE TO SCAN ASPART INSULIN, 8 U PER DO SSI DUE TO COMPUTER PROBLEMS. MED GIVEN PER DO FOR FSBS RESULT OF 351.
[2019-10-13 05:02] VITALS: BP 133/48; PULSE 76; TEMP 98.1
[2019-10-13 06:51] LABS: BASO # 0.1 (0.0-0.2); BASO % 0.4 % (0.0-2.0); EOS # 0.4 (0.0-0.7); EOS % 3.1 % (0-4.0); GRAN # 9.9 (1.4-6.5); INR 1.3 (0.8-3.0); LYMPH # 1.1 (1.2-3.4); LYMPH % 8.5 % (20.0-51.0); MEAN CELL VOLUME 86 fl (80.0-100.0); MEAN CORPUSCULAR HGB CONC 28 g/dl (33.0-37.0); MEAN PLATELET VOLUME 9.2 fl (7.4-10.4); MONO # 1.1 (0.1-0.6); MONO % 8.4 % (1.7-9.3); PLATELET COUNT 366 K/mm3 (130-400); PROTHROMBIN TIME 15.6 SECONDS (9.7-12.8); RED BLOOD COUNT 3.55 M/mm3 (4.20-5.60); REDCELL DISTRIBUTION WIDTH-CV 18.3 % (11.5-14.5)
[2019-10-13 06:52] LABS: HEMATOCRIT 30.6 % (42.0-52.0); HEMOGLOBIN 8.7 g/dl (13.5-18.0); MEAN CORPUSCULAR HEMOGLOBIN 25 pg (27.0-31.0)
[2019-10-13 07:02] LABS: CALCIUM 9.1 mg/dL (8.4-10.2); CREATININE, serum 1.2 (0.66-1.25); MAGNESIUM 1.9 mg/dL (1.6-2.3); POTASSIUM 3.9 mmol/L (3.4-5.0)
--- NOTE | 2019-10-13 08:09 | NUR ---
Patient ate all his breakfast this morning. Reports pain to his left great toe due to possible ingrown toe nail. Refused any tylenol. Takes pills whole with water. Independent with eating. Currently putting in his own hearing aids.
--- NOTE | 2019-10-13 10:20 | NUR ---
HARSH contacted the patient's room phone to complete initial intake, as the patient is new to [facility]. The patient lives in [place] with his daughter (Nga, ph#[phone]), son (Zhang, ph#[phone]), and grandson (Hipolito). The patient reports that he was independent with ADLs prior to hospitalization and has a cane and two walkers. He was also receiving home health services from [facility]. HARSH contacted and confirmed services from Erica at [facility]. Erica reports that the patient was receiving senior living/OT/PT. HARSH faxed updates to [facility]. The patient's PCP is Dr. Gopi Lainez and he receives his medications at [facility] in [place] and through [facility]. He reports no difficulties obtaining his meds. The patient's DPOA-HC is in EMR. His DPOA-HC is his daughter (Nga) and his girlfriend (Светлана Cardona, ph#[phone]). HARSH attempted to contact the patient's daughter to update and confirm the above information. HARSH left her a voicemail and will continue to follow.
--- NOTE | 2019-10-13 11:10 | NUR ---
Received call from HARSH Carlton reporting that a family member was concerned about patient's warfrin dose being so high. Pharmacy was called and they are managing patient's PT/INR and pharmacy reported that patient's INR was sub theraputic at this time so will be given 5 mg warfrin this evening. This will be communicated to family member. This nurse left a message with family member Nga [phone]. Awaiting a return call.
--- NOTE | 2019-10-13 15:42 | NUR ---
Received return call from Nga, daughter and she was updated on patient's warfrin dosing. She voiced understanding and denied any further questions.
--- NOTE | 2019-10-13 15:42 | NUR ---
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 Applied Aquacel AG to both areas and secured with mepilex bandage. Patient has some reddened excoriated skin to groin area and applied barrier ointment to that area. Patient reports having more pain on the left coccyx. This nurse applied a cushion to patient's recliner and an egg crate cushion to his bed. Will continue to monitor.
[2019-10-13 18:16] VITALS: BP 168/49; PULSE 73; TEMP 98.9
--- NOTE | 2019-10-13 20:57 | NUR ---
Call placed to Nga, patient's daughter to clarify two home meds. Patient is taking 20 MEQ of Potassium each day. He was taken off the Nitro per Dr. Cline. EMR was updated.
--- NOTE | 2019-10-13 21:00 | NUR ---
PT RESTING IN BED. TALKATIVE. GOOD HISTORIAN. NO RESP DISTRESS. HAD MODERATELY LG THICK TANNISH SPUTUM PRODUCTION WITH COUGH. PT REPORT CLEAR SINUS DRTAINGE. DENIES PAIN. ABLE TO AMB TO BR WITH LITTLE ASSIST WITH WALKER. ABLE TO LIFT LEGS BACK INTO BED PER SELF. CALL LIGHT IN REACH. BED ALARM SET.
[2019-10-14 04:52] VITALS: BP 131/45; PULSE 82; TEMP 99.7
--- NOTE | 2019-10-14 06:33 | NUR ---
PT UP TO BR A FEW TIMES. NO INCONTINCE. UNEVENTFUL HS.
[2019-10-14 07:28] LABS: INR 1.4 (0.8-3.0)
--- NOTE | 2019-10-14 07:59 | NUR ---
Report from KYLIE Shaffer. Pt called to toilet, incont of urine in pull up, denies numbness/dizziness. Took pills whole with water, glasses, HAs, yellow grippers in place. To chair with seat cushion, call lt in reach, alarm on. Cell phone in reach, tray in reach. Declined pain med. Amb with CGA with gb and FW.
--- NOTE | 2019-10-14 11:01 | NUR ---
Pt returned from therapy, to recliner, soaking left foot
[2019-10-14 16:52] VITALS: BP 136/36; PULSE 72; TEMP 97.9
--- NOTE | 2019-10-14 17:01 | NUR ---
Bedside report to KYLIE Aguila. Pt denied any needs, bed alarm on, call lt in reach.
--- NOTE | 2019-10-14 21:30 | NUR ---
PT REPORTS HE WAS RECOMMENDED TO USE OXYGEN AT NIGHT, PLACED ON O2 AT 2L/NC FOR PT COMFORT. SAO2 WAS 90% ON ROOM AIR. IS ALERT AND ORIENTED X4. WEARS DEPENDS FOR OCCASIONAL INCONTINENCE. COUGHING UP MONREAL SPUTUM. TAKES HS MEDS AT THIS TIME.
[2019-10-15 06:00] VITALS: BP 124/49; PULSE 74; TEMP 98
--- NOTE | 2019-10-15 06:00 | NUR ---
Pt has been up several times this shift to void. Denies pain. Has worn oxygen at 2L/NC this shift.
[2019-10-15 06:50] LABS: INR 1.5 (0.8-3.0); PROTHROMBIN TIME 17.5 SECONDS (9.7-12.8)
--- NOTE | 2019-10-15 08:00 | NUR ---
PATIENT IS SITTING UP AT THE EDGE OF THE BED WITH HIS BREAKFAST TRAY THIS MORNING. PATIENT IS A&OX4. VSS. UPPER LUNG LOBES CLEAR UPON AUSCULTATION. COARSE CRACKLES AUSCULTATED OVER LUNG BASES. PATIENT STATES THAT HE HAS A PRODUCTIVE COUGH WITH MONREAL AND SOMETIMES GREEN SPUTUM. UNOBSERVED BY THIS NURSE. RIGHT-SIDE ABDOMEN SCAB CD&I, NON-DRAINING AND MICHAEL. BOWEL SOUNDS ACTIVE ALL FOUR QUADRANTS. PATIENT TOLERATING DIET WITHOUT ANY COMPLAINTS OF N/V. GENERALIZED WEAKNESS NOTED. POSITIVE PEDAL PULSES EQUAL BILATERALLY. NON-PITTING EDEMA TO FEET BILATERALLY. CALL LIGHT WITHIN REACH. PATIENT DENIES PAIN THIS MORNING.
--- NOTE | 2019-10-15 12:16 | NUR ---
PATIENTS FEET SOAKED IN WARM, SOAPY WATER PER ORDERS. GAUZE AND BANDAID APPLIED TO LEFT GREAT TOE. NO NEEDS AT THIS TIME.
[2019-10-15 17:42] VITALS: BP 152/49; PULSE 76; TEMP 98.1
--- NOTE | 2019-10-15 19:24 | NUR ---
REPORT GIVEN TO KYLIE ROBINS.
--- NOTE | 2019-10-15 19:45 | NUR ---
PT RESTING IN BED. C/O DYSPNEA, PERSISTENT HACKY COUGH, DIAPHRAMATIC DISCOMFORT. BILAT RHONCHI W/ MILD EXP WHEEZE NOTED PRIOR TO COUGH WITH MOD AMT OF THICK MONREAL SPUTUM PRODUCTION. PT UP TO BR WITH WALKER. NEEDED ASSIST TO SITTING POSITION. FATIGUED. HAD URINARY INCONT. NEEDED ASSIST WITH LOW HALF CLOTHING CHANGE. BACK TO BED. WILL NOTIFY A KELI ASSISTANT DIRECTOR OF NURSING OF PT'S STATUS.
--- NOTE | 2019-10-15 20:05 | NUR ---
NOTIFIED SHEYLA MONREAL OF PT'S COMPLAINTS DYSPNEA, COUGH, THICK MONREAL SPUTUM. SEE NEW ORDERS.
--- NOTE | 2019-10-15 20:24 | NUR ---
LAB HERE. HAVING DIFFICULTY WITH OBTAINING SPECIMEN.
[2019-10-15 20:37] LABS: BASO # 0.1 (0.0-0.2); BASO % 0.5 % (0.0-2.0); EOS # 0.3 (0.0-0.7); EOS % 2.6 % (0-4.0); GRAN # 8.6 (1.4-6.5); GRAN % 79.8 % (42.2-75.2); LYMPH # 0.9 (1.2-3.4); LYMPH % 7.9 % (20.0-51.0); MEAN CELL VOLUME 84 fl (80.0-100.0); MEAN CORPUSCULAR HGB CONC 29 g/dl (33.0-37.0); MEAN PLATELET VOLUME 9.5 fl (7.4-10.4); MONO # 0.9 (0.1-0.6); MONO % 8.5 % (1.7-9.3); PLATELET COUNT 400 K/mm3 (130-400); RED BLOOD COUNT 3.36 M/mm3 (4.20-5.60); REDCELL DISTRIBUTION WIDTH-CV 17.9 % (11.5-14.5)
[2019-10-15 20:38] LABS: HEMATOCRIT 28.1 % (42.0-52.0); HEMOGLOBIN 8.2 g/dl (13.5-18.0); MEAN CORPUSCULAR HEMOGLOBIN 24 pg (27.0-31.0)
[2019-10-15 20:44] LABS: ALBUMIN 3.1 gm/dL (3.5-5.0); BILIRUBIN,TOTAL 0.2 mg/dL (0.0-1.0); CALCIUM 8.8 mg/dL (8.4-10.2); CREATININE, serum 1.53 (0.66-1.25); POTASSIUM 4.5 mmol/L (3.4-5.0); TOTAL PROTEIN 6.4 gm/dL (6.4-8.2)
--- NOTE | 2019-10-15 21:20 | NUR ---
STOOL SAMPLE OBTAINED. GREEN IN COLOR. NO BLOOD OBSERVED.
--- NOTE | 2019-10-15 21:55 | NUR ---
RADIOLOGY HERE FOR POTABLE XRAY
[2019-10-16 01:08] VITALS: BP 125/45; PULSE 68; TEMP 97.4
--- NOTE | 2019-10-16 01:20 | NUR ---
VANCOMYCIN STARTED POST BLOOD CULTURES OBTAINED.
--- NOTE | 2019-10-16 02:30 | NUR ---
SEE MAR FOR DIAPHRAM BILAT DISCOMFORT INTERMITTENTLY.
--- NOTE | 2019-10-16 03:46 | NUR ---
PT RESTING NOW, NO DISTRESS AT THIS TIME. O22L NC.
[2019-10-16 05:32] VITALS: BP 115/45; PULSE 67; TEMP 98.2
--- NOTE | 2019-10-16 06:35 | NUR ---
Vancomycin Initial Dosing Pharmacy Note Ordering provider: Sid Pratt MD Indication/duration: Pneumonia, estimated 7 day LABS: Crea=1.53, est crcl of 35 ml/min Recommendation: After 1.5 g IV load, start 1.25 g IV q18h (12 hrs after first dose). Will follow daily labs, trough scheduled for 10/18/19 at 0030 Loading dose: 1.5 grams Maintenance dose: 1.25 grams every 18 hours Trough goal: 15-20 ug/mL
[2019-10-16 07:21] LABS: BASO % 0.5 % (0.0-2.0); EOS # 0.4 (0.0-0.7); EOS % 4.8 % (0-4.0); GRAN # 6.2 (1.4-6.5); GRAN % 74.4 % (42.2-75.2); LYMPH # 0.8 (1.2-3.4); MEAN CELL VOLUME 84 fl (80.0-100.0); MEAN CORPUSCULAR HGB CONC 29 g/dl (33.0-37.0); MEAN PLATELET VOLUME 9.1 fl (7.4-10.4); MONO # 0.8 (0.1-0.6); MONO % 9.3 % (1.7-9.3); PLATELET COUNT 400 K/mm3 (130-400); RED BLOOD COUNT 3.38 M/mm3 (4.20-5.60); REDCELL DISTRIBUTION WIDTH-CV 17.7 % (11.5-14.5)
[2019-10-16 07:26] LABS: HEMATOCRIT 28.5 % (42.0-52.0); HEMOGLOBIN 8.2 g/dl (13.5-18.0); INR 1.8 (0.8-3.0); MEAN CORPUSCULAR HEMOGLOBIN 24 pg (27.0-31.0); PROTHROMBIN TIME 21.7 SECONDS (9.7-12.8)
[2019-10-16 07:39] LABS: CALCIUM 8.8 mg/dL (8.4-10.2); CREATININE, serum 1.26 (0.66-1.25); POTASSIUM 4.1 mmol/L (3.4-5.0)
[2019-10-16 08:00] VITALS: BP 104/44; PULSE 69
--- NOTE | 2019-10-16 08:00 | NUR ---
PT IS A&O*3. PT DENIES PAIN BUT C/O LIGHTHEADED. VSS. ENCOURAGED PT TO LIE DONW ON BED AFTER TAKING MORNING MEDS. PT ADMITED ON 10/11 SINCE WEAKNESS. PT HAS DIMINISHED LUNG SOUNDS. NO ABNORMAL FINDINGS ON HEAD TO TOE ASSESSMENT. PT IS CONSUMING ADEQUATE INTAKE OF BREAKFAST. PT IS USING URINAL. PT HAS IV ON RIGHT AC. PT IS WEARING GLASSES. CALL LIGHT WITHIN REACH.
--- NOTE | 2019-10-16 08:00 | NUR ---
PT ALREADY GONE TO THERAPY
--- NOTE | 2019-10-16 08:00 | NUR ---
PATIENT HAS RLL INFILTRATES, STARTED ON IV VANCO & ZOSYN. IV FLUIDS INFUSING AT 75CC/HR VIA PUMP INTO RIGHT FA IV. PATIENT IS PALE, WEAK AND C/O DIZZINESS. CHECKED VITALS, B/P 104/44 DOWN FROM 115/45. HBG 8.2. PATIENT ON 02 @ 2L PER NC WITH SATS AT 97-98%. WILL MONITOR.
--- NOTE | 2019-10-16 10:00 | NUR ---
CALLED PULM CONSULT
[2019-10-16 12:00] VITALS: BP 149/53; PULSE 77; TEMP 97.7
--- NOTE | 2019-10-16 14:06 | NUR ---
HARSH met with the patient to follow up after the weekend. The patient reports that this weekend was rough. He states that therapy was hard on Wednesday and Wednesday and then he was sore on Wednesday. He states that he is just taking it day by day. SW to continue to follow.
[2019-10-16 17:34] VITALS: BP 138/44; PULSE 77; TEMP 97.9
[2019-10-16 20:00] VITALS: BP 130/45; PULSE 71; TEMP 98.1
--- NOTE | 2019-10-16 20:00 | NUR ---
Received report from KYLIE Lenz. Pt sitting up in bed watching television. Pt has his call light within reach and his bed is in lowest postion.
--- NOTE | 2019-10-16 21:00 | NUR ---
When pt was recommended to allow me to help him soak his left great toe in warm water for 10 minutes, pt stated that he did want to tonight, that he would just wait until tomorrow.
[2019-10-17] VITALS: BP 130/53; PULSE 72; TEMP 98.4
--- NOTE | 2019-10-17 01:59 | NUR ---
Pt has been resting well during the night. Pt has not had any complaints of pain. Pt did wake up when IV pump was beeping for the antiobiotic finishing. Pt has had 900cc of urine out so far. Pt is currently sitting up on the side of his bed, stated he didn't need anything he just wanted to sit up for a while. During the night pt has been rotating from side to side. I did encourage pt to change position as much as he tolerates it to take pressure off of his bottom. Pt has his call light within reach and his bed is in lowest position
--- NOTE | 2019-10-17 03:06 | NUR ---
Pt currently sleeping in bed on his side. Pt has his call light within reach and his bed is in lowest position.
[2019-10-17 04:28] VITALS: BP 139/46; PULSE 75; TEMP 98
--- NOTE | 2019-10-17 07:34 | NUR ---
Reported off to KYLIE Virgen. Pt is sitting in his chair eating breakfast. Call light is within reach and chair alarm on.
[2019-10-17 08:00] VITALS: BP 119/46; PULSE 75; TEMP 98
[2019-10-17 08:09] LABS: INR 2.3 (0.8-3.0); PROTHROMBIN TIME 27.3 SECONDS (9.7-12.8)
--- NOTE | 2019-10-17 11:08 | NUR ---
Patient attended therapies this morning. He just returned from PT and is resting in recliner at this time. He continues on IV antibiotics.
--- NOTE | 2019-10-17 11:38 | NUR ---
PT reported that therapy changed out patient's wheelchair so that he could have a wheelchair that allows for oxygen to be on it. Weight of this wheelchair today with oxygen was 25.3 kg.
--- NOTE | 2019-10-17 14:43 | NUR ---
Patient resting in bed at this time, call light in reach and bed alarm set. Patient denies pain this afternoon. He attended all therapies today and just had his breathing treatment.
--- NOTE | 2019-10-17 16:05 | NUR ---
Patient resting in bed used call light and bed alarm is set.
[2019-10-17 16:53] VITALS: BP 114/42; PULSE 82; TEMP 97.9
--- NOTE | 2019-10-17 16:55 | NUR ---
HARSH attempted to contact the patient's daughter, Nga, to discuss setting up a patient/family conference call for this or Wednesday at 1300. HARSH left her a voicmail. HARSH will attempt to call her tomorrow.
--- NOTE | 2019-10-17 19:30 | NUR ---
PATIENT RESTING IN BED DURING CHANGE OF SHIFT REPORT FROM DAY SHIFT NURSESILVANO. BED ALARM ON.
--- NOTE | 2019-10-17 19:56 | NUR ---
Patient resting in bed, call light in reach and bed alarm set. Patient was able to collect his sputum sample this afternoon and awaiting results at this time. Reported off to night nurse.
--- NOTE | 2019-10-17 22:00 | NUR ---
IV SITE TO R FOREARM LEAKING WITH IV ZOSYN INFUSING, DISCONTINUED IV SITE, SEE CHART FOR NEW IV SITE INSERTED, PATIENT TOLERATED PROCEDURE WELL.
--- NOTE | 2019-10-18 00:53 | NUR ---
PATIENT SLEEPING, DOES NOT AWAKEN WHEN ROOM ENTERED BY STAFF, OBSERVED PATIENT'S BREATHING NONLABORED AND EVEN. BED ALARM ON.
[2019-10-18 04:02] LABS: MEAN CELL VOLUME 83 fl (80.0-100.0); MEAN CORPUSCULAR HGB CONC 29 g/dl (33.0-37.0); MEAN PLATELET VOLUME 8.7 fl (7.4-10.4); PLATELET COUNT 423 K/mm3 (130-400); RED BLOOD COUNT 3.34 M/mm3 (4.20-5.60); REDCELL DISTRIBUTION WIDTH-CV 18.1 % (11.5-14.5)
[2019-10-18 04:06] VITALS: BP 125/45; PULSE 64; TEMP 97.7
[2019-10-18 04:11] LABS: CALCIUM 9.2 mg/dL (8.4-10.2); CREATININE, serum 1.55 (0.66-1.25); MAGNESIUM 2.1 mg/dL (1.6-2.3); POTASSIUM 4.1 mmol/L (3.4-5.0)
[2019-10-18 04:23] LABS: INR 2.8 (0.8-3.0)
[2019-10-18 04:29] LABS: HEMATOCRIT 27.7 % (42.0-52.0); HEMOGLOBIN 8.1 g/dl (13.5-18.0); MEAN CORPUSCULAR HEMOGLOBIN 24 pg (27.0-31.0)
[2019-10-18 05:01] LABS: EOSINOPHIL 9 % (0-4); LYMPHOCYTE 11 % (20.0-51.0); NEUTROPHILS 64 % (42.0-75.2)
[2019-10-18 05:02] LABS: PLATELET ESTIMATE NORMAL (NORMAL)
[2019-10-18 05:03] LABS: HYPOCHROMIA 2+
--- NOTE | 2019-10-18 05:56 | NUR ---
PATIENT SLEEPING, DOES NOT AWAKEN WHEN ROOM ENTERED AT THIS TIME. BREATHING NONLABORED AND EVEN. BED ALARM ON.
--- NOTE | 2019-10-18 07:56 | NUR ---
Patient sitting up at side of bed for breakfast during change of shift report given to day shift nurseKaykay. Bed alarm on. Oxygen off as per patient request, reports wears O2 only at night.
--- NOTE | 2019-10-18 08:05 | NUR ---
PATIENT SITTING UP AT THE EDGE OF THE BED WITH HIS BREAKFAST TRAY THIS MORNING. PATIENT IS A&OX4. VSS. UPPER LUNG LOBES CLEAR UPON AUSCULTATION. COARSE LUNG SOUNDS AUSCULTATED OVER LEFT LOWER LUNG. FINE CRACKLES AUSCULTATED OVER RIGHT LOWER LUNG. PATIENT DENIES SOB. PATIENT STATES THAT HE HAS A PRODUCTIVE COUGH WITH THICK WHITE SPUTUM. BOWEL SOUNDS ACTIVE ALL FOUR QUADRANTS. RIGHT-SIDE CHEST TUBE PUNCTURE SITE SCABBED AND NON-DRAINING. LEFT GREAT TOE REDDENED WITH GAUZE AND BANDAID IN PLACE. MEPLEX TO COCCYX IS CD&I. RIGHT WRIST TO INT. PATIENT DENIES PAIN THIS MORNING. NO NEEDS AT THIS TIME. CALL LIGHT WITHIN REACH.
[2019-10-18 08:19] LABS: PATHOLOGY DIFF REVIEW OK
--- NOTE | 2019-10-18 08:45 | NUR ---
HARSH contacted the patient's daughterNga ([phone]) about the family meeting. The patient's daughter is agreeable to a family meeting at 1300. Will continue to monitor.
--- NOTE | 2019-10-18 12:20 | NUR ---
PATIENT HAD BLADDER INCONTINENCE. PATIENT STRUGGLED TO GET BRIEFS DOWN BEFORE STREAM STARTED. PARTIAL VOID INTO URINAL.
--- NOTE | 2019-10-18 13:15 | NUR ---
HARSH met with the patient to present and review the IPR Team Conference Note with the patient. HARSH discussed the patient's progress and the team's recommendation of an anticipated discharge date for next Wednesday, 10/24 with home health services for PT/OT. The patient was agreeable. HARSH presented Medicare.gov's list of home health agencies for the [facility]. The patient's choice is [facility]. HARSH faxed referral to Erica at [facility]. Awaiting response. HARSH contacted the patient's daughter, Nga to discuss the IPR Team Conference Note and the team's recommendation. Nga is in agreeance. Will continue to monitor.
--- NOTE | 2019-10-18 13:36 | NUR ---
Erica reports [facility] reports they will be able to accommodate the patient's needs. Will continue to monitor.
[2019-10-18 16:48] VITALS: BP 124/41; PULSE 63; TEMP 98.2
--- NOTE | 2019-10-18 21:55 | NUR ---
LAB CALLED RESULTS OF POSITIVE BLOOD CULTURE.
--- NOTE | 2019-10-18 23:49 | NUR ---
PATIENT SLEEPING, DOES NOT AWAKEN WHEN ROOM ENTERED BY STAFF, OBSERVED BREATHING NONLABORED AND EVEN. BED ALARM ON.
--- NOTE | 2019-10-19 02:54 | NUR ---
PATIENT SLEEPING, DOES NOT AWAKEN WHEN ROOM ENTERED BY STAFF. OBSERVED BREATHING NONLABORED AND EVEN. BED ALARM ON.
[2019-10-19 04:38] VITALS: BP 137/43; PULSE 51; TEMP 97.8
--- NOTE | 2019-10-19 05:17 | NUR ---
FSBS CHECKED, RESULTED 114, PATIENT DENIES ANY C/O OR CONCERNS REGARDING FSBS RESULT AND REFUSED OFFER OF EARLY AM SNACK. BED ALARM ON.
--- NOTE | 2019-10-19 06:25 | NUR ---
SACRAL/COCCYX DRSG CHANGED AFTER STOOL STAINED DRSG, PRESSURE SORES COVERED WITH AQUACEL AG TO BOTH SITES AND COVERED WITH MEPILEX DRSG RECOMMENDED. CHAIR ALARM ON, AND CONTINUES WITH O2 DUE TO SHORTNESS OF BREATH WITH ACTIVITIES.
--- NOTE | 2019-10-19 07:22 | NUR ---
Patient up in chair during change of shift report given to day shift nurse, Amanad and student nurse. Chair alarm on.
--- NOTE | 2019-10-19 08:00 | NUR ---
Patient sitting in chair. Gave patient meds and assessment complete. Denies pain at this time. No further needs at this time.
--- NOTE | 2019-10-19 13:05 | NUR ---
A Family Conference was conducted with pt & pt's daughter & grandson via speaker phone. Also present was OT & Cherry Picker Operator. Cherry Picker Operator started by explaining the purpose of the meeting. The OT explained how pt has been functioning w/ OT & PT & is making good progress. Told them that d/c date is currently set for next 10/25/19, as long as pt continues to improve medically, w/ recommendations for home health. They were all fine w/ this. They had a few questions which team answered. Pt's daughter was very appreciative of us help & helping pt.
[2019-10-19 16:08] VITALS: BP 128/54; PULSE 72; TEMP 97.8
--- NOTE | 2019-10-19 17:38 | NUR ---
Patient has done well throughout the day. Minimal needs. Has been up to recliner. Antibiotics infusing per orders to right wrist IV. Denies pain or further needs at this time. Will report off to leather repairer.
--- NOTE | 2019-10-19 20:25 | NUR ---
Pt laying in bed, alert and oriented x4. Has SL to right wrist, connected Zosyn and is infusing without redness or swelling. Reports minimal sputum production. Bilateral lower legs with minimal edema, denies pain. Wears oxygen at night.
--- NOTE | 2019-10-20 04:00 | NUR ---
PT RESTLESS, NOT SLEEPING WELL. IV ZOSYN INFUSING TO RIGHT WRIST IV SITE WITHOUT REDNESS OR SWELLING. USES URINAL AT BEDSIDE.
[2019-10-20 04:11] VITALS: BP 132/62; PULSE 66; TEMP 97.8
[2019-10-20 07:30] LABS: INR 4.7 (0.8-3.0)
[2019-10-20 07:38] LABS: PROTHROMBIN TIME 57.3 SECONDS (9.7-12.8)
--- NOTE | 2019-10-20 09:21 | NUR ---
PT UP TO CHAIR FOR BREAKFAST. WORKING WITH THERAPY ORDERED. PT IS A/O X3 PLEASANT AFFECT. DENIES OFFER TO SOAK FOOT. PT OUT TO PT AFTER TAKING AM MEDS.
--- NOTE | 2019-10-20 15:14 | NUR ---
SW met with the patient to ask about any concerns or needs. The patient was resting and stated he does not need anything at this time. SW informed the patient that [facility] can accomodate for services. SW attempted to contact the patient's daughter, Nga, left message. Will continue to monitor.
[2019-10-20 16:00] VITALS: BP 152/54; PULSE 81; TEMP 987.4
--- NOTE | 2019-10-20 19:03 | NUR ---
REPORT TO SHIMON ESPINAL.
--- NOTE | 2019-10-20 21:00 | NUR ---
SHIFT REPORT FROM OLIVEIRO ESPINAL (MEDICAL) AT SHIFT CHANGE. PT SITTING ON SIDE OF BED. C/O RT SHOULDER ACHES. SEE MAR FOR TYLENOL. PT HARD OF HEARING. SEE ASSESSMENT. REPOSTITIONED TO TOP OF BED PER SELF. IV SITE FLUSHES WELL. HAS OCCASIONAL LOOSE NONPRODUCTIVE COUGH. ENC I.S. USE. CALL LIGHT IN REACH. BED ALARM SET.
[2019-10-21 05:35] VITALS: BP 120/39; PULSE 65; TEMP 97.4
[2019-10-21 07:51] LABS: INR 5.1 (0.8-3.0)
--- NOTE | 2019-10-21 09:25 | NUR ---
Patient resting in bed at this time, call light in reach and bed alarm set. Patient ate all his breakfast this morning and was independent with that task. He also did all his own grooming. Left toe was soaked per protocol and has no reddness. Patient reported some pain to his right shoulder and was given prn tylenol with good effect. Will continue to monitor.
--- NOTE | 2019-10-21 09:51 | NUR ---
Received report from lab on a critical INR value. This was called to the pharmacy as they manage this persons Coumadin. They will hold his coumadin tonight. Damián with pharmacy also spoke with Dr. Pratt to clarify this order.
[2019-10-21 18:09] VITALS: BP 132/44; PULSE 69; TEMP 98.6
--- NOTE | 2019-10-21 20:15 | NUR ---
Received report from KYLIE Virgen. Pt is currently sitting up in bed watching television. Pt did state that his right shoulder was hurting. He stated that it maybe from physical therapy and working his muscule. He informed me that he would let me know if he needed something for pain. Pt vitials were all within normal limits, lungs sounds were clear, heart sound were S1 and S2 sounds. Pt is tolerating water well. Pt was given fresh ice water at this time. Pt has his call light within reach and his bed is in lowest position at this time, and alarm is on.
--- NOTE | 2019-10-21 20:56 | NUR ---
Patient tolerated diet well this shift. Reported having some shoulder pain and was given prn tylenol with good effect. He was independent on all grooming and dressing upper and lower. He was a SBA with walker and gaitbelt walking in hallway. Denied any questions this evening.
[2019-10-22 06:06] VITALS: BP 141/50; PULSE 68; TEMP 97.7
--- NOTE | 2019-10-22 06:17 | NUR ---
Pt currently sleeping at this time. Pt currently has Zosyn infusing at this time. Pt has call light within reach and bed is in lowest position and alarm is on
[2019-10-22 07:01] LABS: INR 4.2 (0.8-3.0)
[2019-10-22 07:04] LABS: PROTHROMBIN TIME 50.7 SECONDS (9.7-12.8)
--- NOTE | 2019-10-22 07:29 | NUR ---
Reported off to KYLIE Virgen. Pt is sitting up in bed eating his breakfast at this time. Lab did call for a critical lab on him. PT was 50.7 and INR was 4.2, this was given in report to nurse. Pt has his call light and his bed is in lowest position.
--- NOTE | 2019-10-22 10:41 | NUR ---
Patient resting in bed at this time, call light in reach and alarm is set. Patient tolerated diet well this morning eating 100% of his breakfast. Right inner groin has a little excoriation and this nurse applied zinc ointment to the area. Will continue to monitor. He still has a stage II ulcers to his coccyx area. It is healing well, applied aquacel AG to area and secured with mepilex patch. Will continue to monitor.
--- NOTE | 2019-10-22 10:58 | NUR ---
Notified Dr. Pratt that lab called with critical value of PT for patient. No new orders at this time. Reported new sputum result of Staph Aureus that is resistant to methicillin. No new orders at this time. Received call from pharmacy asking if there were any labs scheduled for Wednesday. There was not, but Dr. Pratt was called about this and he will review patient chart today.
[2019-10-22 17:13] VITALS: BP 153/60; PULSE 76; TEMP 98
--- NOTE | 2019-10-22 19:30 | NUR ---
PATIENT RESTING IN BED WATCHING TV DURING CHANGE OF SHIFT REPORT FROM DAY SHIFT NURSESILVANO. BED ALARM ON. DENIES ANY NEEDS
--- NOTE | 2019-10-22 19:32 | NUR ---
See new orders for labs to be drawn tomorrow morning per Dr. Pratt. Reported off to night nurse.
[2019-10-22 20:00] VITALS: BP 138/49; PULSE 67
--- NOTE | 2019-10-23 00:21 | NUR ---
PATIENT SLEEPING, DOES NOT AWAKEN WHEN ROOM IS ENTERED BY STAFF. BREATHING IS EVEN AND NONLABORED. BED ALARM ON.
[2019-10-23 03:36] VITALS: BP 122/32; PULSE 75; TEMP 98
--- NOTE | 2019-10-23 04:41 | NUR ---
Patient sleeping, does not awaken when room entered by staff, observed breathing as even and nonlabored. Bed alarm on.
[2019-10-23 06:36] LABS: BASO # 0.1 (0.0-0.2); BASO % 1.4 % (0.0-2.0); EOS # 0.4 (0.0-0.7); EOS % 7.4 % (0-4.0); GRAN # 2.6 (1.4-6.5); GRAN % 51.4 % (42.2-75.2); LYMPH # 1.2 (1.2-3.4); LYMPH % 23.7 % (20.0-51.0); MEAN CELL VOLUME 85 fl (80.0-100.0); MEAN CORPUSCULAR HGB CONC 28 g/dl (33.0-37.0); MONO # 0.8 (0.1-0.6); MONO % 15.5 % (1.7-9.3); PLATELET COUNT 606 K/mm3 (130-400); RED BLOOD COUNT 4.03 M/mm3 (4.20-5.60); REDCELL DISTRIBUTION WIDTH-CV 18.2 % (11.5-14.5)
[2019-10-23 06:40] LABS: HEMATOCRIT 34.4 % (42.0-52.0); HEMOGLOBIN 9.7 g/dl (13.5-18.0); MEAN CORPUSCULAR HEMOGLOBIN 24 pg (27.0-31.0)
[2019-10-23 06:53] LABS: CALCIUM 9.7 mg/dL (8.4-10.2); CREATININE, serum 1.41 (0.66-1.25); MAGNESIUM 2.1 mg/dL (1.6-2.3); POTASSIUM 4.3 mmol/L (3.4-5.0)
--- NOTE | 2019-10-23 07:17 | NUR ---
PATIENT UP IN CHAIR DURING CHANGE OF SHIFT REPORT GIVEN TO DAY SHIFT NURSEMARIUSZ, NO NEEDS REPORTED. CHAIR ALARM ON.
--- NOTE | 2019-10-23 08:27 | NUR ---
Patient dressed & ready for therapy. Blood sugar stable. He tolerated breakfast. Denies the need for pain medication. Pain chronic to his shoulder.
--- NOTE | 2019-10-23 11:00 | NUR ---
Patient sitting up in chair awaiting lunch.
--- NOTE | 2019-10-23 11:23 | NUR ---
SW met with the patient to discuss any concerns or needs and to review the discharge plan. The patient did not have any concerns or needs at this time and was still in agreeance with discharging on Wednesday, 10/24 with [facility]. Will continue to monitor.
--- NOTE | 2019-10-23 14:14 | NUR ---
Patient sitting up in chair, he has completed therapy for today. He is now Mod I. I spoke with pharmacist Fabio. He will add labs for Am to dose coumadin (continue to hold for tonight). Patient was up to the bathroom, so I could throughly assess coccyx & skin. Patient has alot of redness, ( stage 1 ) cream applied will get orders for power to see if that will improve reddness.
--- NOTE | 2019-10-23 14:50 | NUR ---
office called they plan to have a video appt post IRP stay on . They will call patient to set up
[2019-10-23 16:12] VITALS: BP 145/54; PULSE 65; TEMP 98
--- NOTE | 2019-10-23 17:49 | NUR ---
Patient sitting up in bed. Eating dinner. Continues to do well. We reviewed increase insulin dose, he was agreeable.
--- NOTE | 2019-10-23 19:30 | NUR ---
PATIENT C/O PROBLEMS WITH VOIDING DURING CHANGE OF SHIFT REPORT FROM DAY SHIFT NURSEMARIUSZ. PATIENT DID HAVE BM BUT COULD NOT VOID AT TIME OF STOOLING, BLADDER SCAN PERFORMED BY DAY NURSE WITH 456ML SCANNED. PATIENT AGREED TO AMBULATED IN CRANE WITH GAIT BELT/WW WITH NURSE. PATIENT THEN ATTEMPTED TO VOID AND WAS SUCCESSFUL, RESCANNED BLADDER RESULTED IN 119ML LEFT IN BLADDER AFTER VOIDING. PATIENT DENIES ANY OTHER NEEDS CURRENTLY. PATIENT UP INDEPENDENTLY IN ROOM ONLY, PATIENT VERBALIZES UNDERSTANDING AMB WITH ASST IN HALLS.
--- NOTE | 2019-10-23 21:00 | NUR ---
OBSERVED COCCYX AREA CLEAR, PINK HEALED SKIN AREA WHERE PREVIOUSLY DOCUMENTED PRESSURE SORES WERE OBSERVED/TREATED, NOW COCCYX/SACRAL AREA OPEN TO AIR. DESENEX POWDER APPLIED TO EXCORIATED SCROTAL/NOE GROIN AREAS, NO BLEEDING OBSERVED TO EXCORIATED AREAS AT THIS TIME. PATIENT UP INDEPENDENTLY IN ROOM WITH NO PROBLEMS. PATIENT PLANS TO BE DISCHARGED TO HOME THIS WEDNESDAY, 10/24. SEE eMAR FOR MEDS GIVEN.
--- NOTE | 2019-10-24 01:01 | NUR ---
PATIENT SLEEPING, OBSERVING BREATHING NONLABORED AND EVEN. DOES NOT AWAKEN WHEN ROOM ENTERED BY STAFF. PATIENT UP INDEPENDENTLY IN ROOM WITH NO PROBLEMS.
--- NOTE | 2019-10-24 03:16 | NUR ---
Patient sleeping, does not awaken when room entered by staff. Observed breathing pattern as nonlabored and even. Patient has been up independently in room so far through the night with no problems.
[2019-10-24 05:05] VITALS: BP 131/49; PULSE 70; TEMP 97.6
[2019-10-24 06:35] LABS: PROTHROMBIN TIME 24.2 SECONDS (9.7-12.8)
--- NOTE | 2019-10-24 07:27 | NUR ---
Patient up in chair during change of shift report given to day shift nursePeggy. Up independently in room with no problems during the night.
--- NOTE | 2019-10-24 09:37 | NUR ---
PT UP TO CHAIR UPON ENTERING ROOM, MEDICATIONS GIVEN, INSULIN GIVEN, PT NOT REPORTING PAIN, COARSE LUNG SOUNDS PRESENT, NO OTHER NEEDS AT THIS TIME. PT REPORTED BRUSHING TEETH, COMBING HAIR, AND SHAVING INDEPENDENTLY. SHOWER GIVEN WITH PT. PT STEADY WITH WHEELCHAIR AND GAITBELT.
--- NOTE | 2019-10-24 11:42 | NUR ---
SW met with the patient to present the IM form. The patient understood and signed the form. A copy was provided to the patient and the original placed in the chart.
--- NOTE | 2019-10-24 13:14 | NUR ---
PT HAD AN EPISODE OF DIZZINESS, HE SAID "I FELT DIZZY AND EVERYTHING IS REALLY LOUD." CHECKED BS AND IT WAS 172, VS WERE 108/66, 94% ON ROOM AIR, 72 HR. INFORMED PA AND PHYSICAL THERAPY OF THIS.
--- NOTE | 2019-10-24 14:53 | NUR ---
NO SNACK BROUGHT UP FROM KITCHEN.
[2019-10-24 16:32] VITALS: BP 149/54; PULSE 66; TEMP 97.6
--- NOTE | 2019-10-24 18:22 | NUR ---
PT INDEPENDANT IN COMBING HAIR, BRUSHING TEETH, SHAVING, UTILIZES WALKER. PT DENYING PAIN OR DISCOMFORT.
--- NOTE | 2019-10-24 18:45 | NUR ---
PATIENT RESTING IN BED DURING CHANGE OF SHIFT REPORT FROM DAY SHIFT NURSEASHLEE. PATIENT UP INDEPENDENTLY IN ROOM WITHOUT ANY C/O OR CONCERNS REPORTED TO STAFF. PATIENT ENCOURAGED TO CALL STAFF IF HE HAS ANY NEEDS OR CONCERNS.
--- NOTE | 2019-10-24 20:00 | NUR ---
REPORTS ABLE TO APPLY DESENEX POWDER TO EXCORIATED SCROTAL/NOE GROIN FOLD AREAS WITH NO PROBLEMS. REPORTS LEFT GREAT TOE INGROWN TOE NAIL AREA NOT PAINFUL HAS BEEN REFUSING FOOT SOAKS FOR THE PAST 2-3 DAYS, AREA IS CLEAR/NO REDNESS OR SWELLING. REPORTS UP IN ROOM WITHOUT PROBLEMS. REPORTED NO FURTHER REPEATS OF DIZZINESS REPORTED EARLIER BY PATIENT/STAFF SO FAR THIS EVENING, ENCOURAGING PATIENT TO CONTACT DOCTOR IF HE HAS ANY FURTHER C/O DIZZINESS WHEN HE IS DISMISSED TO HOME WITH PATIENT VERBALIZING UNDERSTANDING. DENIES ANY NEEDS AT THIS TIME.
--- NOTE | 2019-10-25 00:44 | NUR ---
PATIENT SLEEPING, DOES NOT AWAKEN WHEN ROOM ENTERED BY STAFF. OBSERVED BREATHING NONLABORED AND EVEN, WEARING O2 PER NC. PATIENT UP INDEPENDENTLY IN ROOM WITH NO PROBLEMS CURRENTLY.
[2019-10-25 04:38] VITALS: BP 139/56; PULSE 88; TEMP 98
--- NOTE | 2019-10-25 07:14 | NUR ---
PATIENT RESTING IN BED DURING CHANGE OF SHIFT REPORT GIVEN TO DAY SHIFT NURSE, GILMAR. PATIENT CONTINUES TO BE UP INDEPENDENTLY IN ROOM, HAS NO CONCERNS AT TIME OF REPORT. EXPECTING TO BE DISCHARGED LATER TODAY.
--- NOTE | 2019-10-25 07:28 | NUR ---
Lying in bed with eyes open. Denies pain. Is hoping to go home today. Says that he is going to get out of bed at this time and get dressed then eat breakfast. Denies needs at this time.
[2019-10-25 07:34] LABS: INR 1.4 (0.8-3.0); PROTHROMBIN TIME 17.1 SECONDS (9.7-12.8)
[2019-10-25] MEDS ORDERED: COUMADIN 2MG2 MG/TAB PO (08:37)
--- NOTE | 2019-10-25 10:06 | NUR ---
Awaiting call back from Dr. Cline's office regarding follow up appointment. Updated patient and explained once we have that follow up appointment date and time we will be able to proceed with a discharge time. Patient sitting up in chair. Denies needs at this time.
--- NOTE | 2019-10-25 11:53 | NUR ---
Reviewed all discharge instructions with the patient. Explain to the patient when he gets home he will need to check his blood sugar, eat lunch, and give himself his insulin. Questions answered. Patient verbalizes understanding and signs paperwork. Discharge packet provided to the patient. Patient's family in the ER entrance waiting to hop picker patient. Patient escorted out via wheelchair.
--- NOTE | 2019-10-25 14:40 | NUR ---
The patient discharged home this day, 10/24 with [facility]. [facility] faxed discharge orders to Erica at [facility]. There are no additional needs at this time.
== END 2019-10-25 11:53 | disposition home health service (06) | DRG 947 ==
PROVIDERS: Nurse Practitioner Family; Physician Assistant; ADMIT Internal Medicine
DX: R53.81 Other malaise (principal); J18.9 Pneumonia, unspecified organism; I50.32 Chronic diastolic (congestive) heart failure; E87.1 Hypo-osmolality and hyponatremia; G72.9 Myopathy, unspecified; E78.5 Hyperlipidemia, unspecified; I11.0 Hypertensive heart disease with heart failure; E11.9 Type 2 diabetes mellitus without complications; G47.33 Obstructive sleep apnea (adult) (pediatric); J44.9 Chronic obstructive pulmonary disease, unspecified; N40.0 Benign prostatic hyperplasia without lower urinary tract symptoms; L60.0 Ingrowing nail; D64.9 Anemia, unspecified; L89.159 Pressure ulcer of sacral region, unspecified stage; G20 Parkinson's disease; I35.0 Nonrheumatic aortic (valve) stenosis; I48.91 Unspecified atrial fibrillation; Z79.01 Long term (current) use of anticoagulants; Z79.4 Long term (current) use of insulin; Z79.82 Long term (current) use of aspirin; Z95.0 Presence of cardiac pacemaker; Z86.711 Personal history of pulmonary embolism; Z87.891 Personal history of nicotine dependence; Z88.5 Allergy status to narcotic agent
CPT/HCPCS: 99222-AI; 99231-AI; 99232-AI; 99233-AI; 99239; A9284; J1815; J2543; J3370; J7030; J7050

== ENCOUNTER 2020-03-01 10:31 | Day surgery (SDC) | payer MEDICARE, OTHER ==
[2020-03-01] VITALS (7 sets, daily range): BP systolic 115–166; BP diastolic 52–74; PULSE 54–67; TEMP 97.6
[~2020-03-01] VITALS: Ht 167.6 cm; Wt 91.0 kg
[~2020-03-01 10:31] MED LIST changes: +ALDACTONE 25MG25 M1 PO; +APIDRAVL SQ; +COUMADIN 2MG2 MG/TAB PO; +FLOMAX 0.40.4 MG/CAP PO; +LEVEMIR FLEX100 U/ML SQ; +SENOKOT S 50 MG1 TAB PO
[2020-03-01] MEDS ORDERED: K-DUR 10 MEQ T10 MEQ PO (11:00)
[2020-03-01] MEDS ORDERED: COUMADIN4 MG PO (11:02)
[2020-03-01] MEDS ORDERED: B-12 250 MCG PO (11:03)
[2020-03-01 11:51] LABS: POTASSIUM 4.2 mmol/L (3.4-5.0)
[2020-03-01 11:58] LABS: INR 2.1 (0.8-3.0); PROTHROMBIN TIME 23.3 SECONDS (9.7-12.8)
[2020-03-01 12:26] LABS: THYROID STIMULATING HORMONE 34.9 uIU/mL (0.465-4.680)
--- NOTE | 2020-03-01 16:30 | NUR ---
Pt is ready for discharge. I have reviewed dc/fu and rx instructions with pt. RX for amiodarone 400 mg bid x 1 week was called in to [facility] in [place]. Pt instructed to call DR. Cline's office for follow up by next wednesday, per Dr. Cline's request. Pt verbalized understanding of instructions. iv was dc'd with cath intact, dressing was applied. Pt was ambulatory at his baseline at time of discharge. to exit via wheelchair.
== END 2020-03-01 15:15 | disposition home or self-care (01) ==
LOC: COL.CAR 10:31
PROVIDERS: Internal Medicine Interventional Cardiology
DX: I48.19 Other persistent atrial fibrillation (principal); I11.9 Hypertensive heart disease without heart failure; E11.9 Type 2 diabetes mellitus without complications; Z88.5 Allergy status to narcotic agent; I34.0 Nonrheumatic mitral (valve) insufficiency; G47.33 Obstructive sleep apnea (adult) (pediatric); G25.0 Essential tremor; R20.2 Paresthesia of skin; Z85.29 Personal history of malignant neoplasm of other respiratory and intrathoracic organs; Z95.0 Presence of cardiac pacemaker; Z92.21 Personal history of antineoplastic chemotherapy; Z79.01 Long term (current) use of anticoagulants; Z92.3 Personal history of irradiation; Z86.711 Personal history of pulmonary embolism; Z79.899 Other long term (current) drug therapy; Z87.891 Personal history of nicotine dependence; Z79.82 Long term (current) use of aspirin
CPT/HCPCS: J2704; J7030